=== PATIENT | female | born 2000 | race Caucasian/White ===

== ENCOUNTER 2020-12-03 17:38 | Emergency (ER) | payer OTHER ==
[2020-12-03] MEDS ORDERED: MEDROL 4MG DOSEP4 MG PO (18:29)
== END 2020-12-03 18:37 | disposition home or self-care (01) ==
LOC: FER 17:38
DX: G56.01 Carpal tunnel syndrome, right upper limb (principal); Z88.0 Allergy status to penicillin

== ENCOUNTER 2021-01-27 10:43 | Emergency (ER) | payer OTHER ==
[~2021-01-27 10:43] MED LIST: MEDROL 4MG DOSEP4 MG PO
[2021-01-27 11:28] LABS: BASOPHIL 0.4 % (0-2); EOSINOPHIL 2.3 % (0-5); HCT 43.7 % (37.0-47.0); LYMPHOCYTE 22.9 % (15-48); MCHC 34.3 g/dL (32.0-36.0); MCV 93.2 fL (78.0-100.0); MPV 8.6 fL (6.0-9.5); NEUTROPHIL 66.1 % (41-80); NRBC 0; PLT 256 K/uL (150-400); RBC 4.69 M/uL (4.20-5.40); RDW 13.2 % (11.5-14.0); WBC 6.9 K/uL (4.0-10.5)
== END 2021-01-27 18:13 | disposition home or self-care (01) ==
LOC: FER 10:43
PROVIDERS: Emergency Medicine
DX: R09.1 Pleurisy (principal); Z88.0 Allergy status to penicillin
CPT/HCPCS: 36415; 71045; 84484; 85025; 85379

== ENCOUNTER 2021-05-08 15:42 | Emergency (ER) | payer OTHER ==
[2021-05-08 16:37] LABS: BILIRUBIN NEGATIVE (NEGATIVE); BLOOD NEGATIVE Ery/uL (NEGATIVE); CLARITY CLEAR (CLEAR); COLOR YELLOW (YELLOW); GLUCOSE (U) NORMAL (NORMAL); LEUKOCYTES NEGATIVE Leu/uL (NEGATIVE); NITRITE NEGATIVE (NEGATIVE); PROTEIN TRACE (LOW) mg/dL (NEGATIVE); SPECIFIC GRAVITY >=1.030 (1.001-1.030); UROBILINOGEN 0.2 mg/dL (0.2-1.0)
[2021-05-08 16:39] LABS: BASOPHIL 0.4 % (0-2); EOSINOPHIL 3.1 % (0-5); HCT 42.3 % (37.0-47.0); HGB 14.3 g/dl (12.5-16.0); LYMPHOCYTE 32.3 % (15-48); MCH 32.4 pg (25.0-31.0); MCHC 33.8 g/dL (32.0-36.0); MCV 95.7 fL (78.0-100.0); MONOCYTE 7.3 % (0-12); MPV 8.6 fL (6.0-9.5); NEUTROPHIL 56.8 % (41-80); NRBC 0; PLT 238 K/uL (150-400); RBC 4.42 M/uL (4.20-5.40); RDW 13.1 % (11.5-14.0); WBC 7.4 K/uL (4.0-10.5)
[2021-05-08 16:44] LABS: BACTERIA 1+; SQUAMOUS EPITHELIAL CELLS >50
[2021-05-08 16:51] LABS: BILIRUBIN - TOTAL 0.3 mg/dL (0.2-1.0); BUN/CREAT RATIO (CALC) 10.9 RATIO; CREATININE 1.01 mg/dL (0.51-0.95); GLOBULIN (CALCULATION) 3.2 g/dL; TOTAL PROTEIN 7.2 g/dL (6.4-8.2)
[2021-05-08] MEDS ORDERED: DICLOFENAC SODI75 MG PO (17:38)
== END 2021-05-08 17:53 | disposition home or self-care (01) ==
LOC: FER 15:42
PROVIDERS: Emergency Medicine
DX: N83.202 Unspecified ovarian cyst, left side (principal); I10 Essential (primary) hypertension; F17.210 Nicotine dependence, cigarettes, uncomplicated; Z87.19 Personal history of other diseases of the digestive system
CPT/HCPCS: 36415; 80053; 81001; 85025; 87210; J1885

== ENCOUNTER 2022-03-02 11:26 | Emergency (ER) | payer OTHER ==
[~2022-03-02 11:26] MED LIST changes: +DICLOFENAC SODI75 MG PO
[2022-03-02 12:12] LABS: BILIRUBIN NEGATIVE (NEGATIVE); BLOOD NEGATIVE Ery/uL (NEGATIVE); CLARITY CLEAR (CLEAR); COLOR YELLOW (YELLOW); GLUCOSE (U) NORMAL (NORMAL); LEUKOCYTES NEGATIVE Leu/uL (NEGATIVE); NITRITE NEGATIVE (NEGATIVE); PROTEIN NEGATIVE (NEGATIVE); SPECIFIC GRAVITY 1.025 (1.001-1.030); UROBILINOGEN 0.2 mg/dL (0.2-1.0)
[2022-03-02] MEDS ORDERED: ZPAK PO (12:23)
== END 2022-03-02 12:44 | disposition home or self-care (01) ==
LOC: FER 11:26
PROVIDERS: Emergency Medicine
DX: O99.351 Diseases of the nervous system complicating pregnancy, first trimester (principal); O99.511 Diseases of the respiratory system complicating pregnancy, first trimester; O16.1 Unspecified maternal hypertension, first trimester; H66.93 Otitis media, unspecified, bilateral; J06.9 Acute upper respiratory infection, unspecified; Z88.0 Allergy status to penicillin; Z79.899 Other long term (current) drug therapy
CPT/HCPCS: 81003; 99283